=== PATIENT | female | born 1995 | race Caucasian/White ===

== ENCOUNTER 2018-12-24 13:51 | Emergency (ER) | payer OTHER ==
[~2018-12-24] VITALS: Ht 177.8 cm; Wt 89.9 kg
--- OUTSIDE RECORDS SUMMARY | 2018-12-24 13:53 | XMS REPORT ---
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 Allergies, Adverse Reactions, Alerts Allergy Name Allergy Type Status Severity Reaction(s) Onset Date Inactive Date Treating Clinician Comments levofloxacin DA Active SV 2018-10-20 00:00:00 STARTS WITH A "CEF" ANTIBIOTIC FOR UTI DA Active U 2018-08-10 00:00:00 Medications This patient has no known medications. Results Test Description Test Time Test Comments Text Results Atomic Results Result Comments COMPREHENSIVE METABOLIC PANEL 2018-10-20 10:58:00 SODIUM (test code=NA) 137 mEq/L 135-145 POTASSIUM (test code=K) 3.8 mEq/L 3.5-5.0 CHLORIDE (test code=CL) 106 mEq/L 100-115 CARBON DIOXIDE (test code=CO2) 23 mEq/L 22-31 ANION GAP (test code=GAP) 11.70 10-20 GLUCOSE (test code=GLU) 98 mg/dL 65-110 BLOOD UREA NITROGEN (test code=BUN) 9 mg/dL 7-18 GLOMERULAR FILTRATION RATE (test code=GFR) 194 ml/min >60 CREATININE (test code=CREAT) 0.4 mg/dL 0.5-1.0 TOTAL PROTEIN (test code=PROT) 6.2 gm/dL 6.3-8.2 ALBUMIN (test code=ALB) 2.4 gm/dL 3.4-4.8 CALCIUM (test code=CA) 7.6 mg/dL 8.4-10.2 BILIRUBIN TOTAL (test code=BILT) 0.2 mg/dL 0.2-1.0 SGOT/AST (test code=AST) 10 units/L 15-37 SGPT/ALT (test code=ALT) 13 units/L 12-78 ALKALINE PHOSPHATASE TOTAL (test code=ALKP) 99 units/L 46-116 [id number] 10:58:00* Test Item Value Reference Range Comments LIPASE (test code=LIP) 97 units/L 73-393 CBC W/AUTO [id number] 10:23:00* Test Item Value Reference Range Comments WHITE BLOOD CELL (test code=WBC) 13.3 K/mm3 6.6-12.1 RED BLOOD CELL (test code=RBC) 3.61 M/mm3 3.45-5.01 HEMOGLOBIN (test code=HGB) 10.3 g/dL 10.7-13.9 HEMATOCRIT (test code=HCT) 31.7 % 32.1-42.1 MEAN CELL VOLUME (test code=MCV) 88 fL 84.1-94.8 MEAN CELL HGB (test code=MCH) 28.5 pg 27-35 MEAN CELL HGB CONCETRATION (test code=MCHC) 32.5 gm/dL 32.2-34.1 RED CELL DISTRIBUTION WIDTH (test code=RDW) 12.5 % 12.4-16.5 PLATELET COUNT (test code=PLT) 174 K/mm3 133-385 IMMATURE PLATELET FRACTION (test code=IPF) 0.0 % 0.0-10.8 MEAN PLATELET VOLUME (test code=MPV) 10.8 fl 9.1-12.7 NEUTROPHIL % (test code=NT%) 78.2 % 56.5-79.4 LYMPHOCYTE % (test code=LY%) 16.1 % 14.3-34.3 MONOCYTE % (test code=MO%) 4.3 % 5.1-10.4 EOSINOPHIL % (test code=EO%) 0.7 % 0.1-3.0 BASOPHIL % (test code=BA%) 0.2 % 0.1-1.0 NEUTROPHIL # (test code=NT#) 10.4 K/mm3 LYMPHOCYTE # (test code=LY#) 2.1 K/mm3 MONOCYTE # (test code=MO#) 0.6 K/mm3 EOSINOPHIL # (test code=EO#) 0.09 K/mm3 BASOPHIL # (test code=BA#) 0.0 K/mm3 RBC MORPHOLOGY REQUIRED (test code=RBCM) NORMAL NORMAL PLATELET MORPHOLOGY REQUIRED (test code=PLTMR) NORMAL NORMAL UA RFLX MICR CULT IF [id number] 10:10:00* Test Item Value Reference Range Comments UA COLOR (test code=COLU) CHELO YELLOW UA APPEARANCE (test code=APPU) CLOUDY CLEAR UA GLUCOSE DIPSTICK (test code=DGLUU) NEGATIVE NEG UA BILIRUBIN DIPSTICK (test code=BILU) NEGATIVE NEG UA KETONE DIPSTICK (test code=KETU) NEGATIVE NEG UA SPECIFIC GRAVITY (test code=SGU) 1.023 1.001-1.035 UA BLOOD DIPSTICK (test code=MADISON) NEG NEG UA PH DIPSTICK (test code=MARGE) 5.0 5-9 UA PROTEIN DIPSTICK (test code=PROU) 1+ NEG UA UROBILINIOGEN DIPSTICK (test code=URO) NEGATIVE mg/dL NEG UA NITRITE DIPSTICK (test code=SKYLAR) NEG NEG UA LEUKOCYTE ESTERASE DIPSTICK (test code=LEUU) TRACE NEG UA WBC (test code=WBCU) 11-15 #/hpf NONE SEEN UA RBC (test code=RBCU) 3-5 #/hpf NONE SEEN UA EPITHELIAL CELLS (test code=EPIU) FEW #/HPF RARE-FEW UA BACTERIA (test code=BACU) RARE /HPF RARE-FEW UA MUCUS (test code=MUCU) 4+ NONE SEEN CBC W/AUTO [id number] 10:31:00* Test Item Value Reference Range Comments WHITE BLOOD CELL (test code=WBC) 10.3 K/mm3 6.6-12.1 RED BLOOD CELL (test code=RBC) 4.08 M/mm3 3.45-5.01 HEMOGLOBIN (test code=HGB) 12.0 g/dL 10.7-13.9 HEMATOCRIT (test code=HCT) 36.4 % 32.1-42.1 MEAN CELL VOLUME (test code=MCV) 89 fL 84.1-94.8 MEAN CELL HGB (test code=MCH) 29.4 pg 27-35 MEAN CELL HGB CONCETRATION (test code=MCHC) 33.0 gm/dL 32.2-34.1 RED CELL DISTRIBUTION WIDTH (test code=RDW) 14.1 % 12.4-16.5 PLATELET COUNT (test code=PLT) 191 K/mm3 133-385 IMMATURE PLATELET FRACTION (test code=IPF) 3.8 % 0.0-10.8 MEAN PLATELET VOLUME (test code=MPV) 10.8 fl 9.1-12.7 NEUTROPHIL % (test code=NT%) 78.4 % 56.5-79.4 LYMPHOCYTE % (test code=LY%) 14.2 % 14.3-34.3 MONOCYTE % (test code=MO%) 6.0 % 5.1-10.4 EOSINOPHIL % (test code=EO%) 0.7 % 0.1-3.0 BASOPHIL % (test code=BA%) 0.2 % 0.1-1.0 NEUTROPHIL # (test code=NT#) 8.0 K/mm3 LYMPHOCYTE # (test code=LY#) 1.5 K/mm3 MONOCYTE # (test code=MO#) 0.6 K/mm3 EOSINOPHIL # (test code=EO#) 0.07 K/mm3 BASOPHIL # (test code=BA#) 0.0 K/mm3 RBC MORPHOLOGY REQUIRED (test code=RBCM) NORMAL NORMAL PLATELET MORPHOLOGY REQUIRED (test code=PLTMR) NORMAL NORMAL UA RFLX MICR CULT IF [id number] 10:19:00* Test Item Value Reference Range Comments UA COLOR (test code=COLU) YELLOW YELLOW UA APPEARANCE (test code=APPU) CLEAR CLEAR UA GLUCOSE DIPSTICK (test code=DGLUU) NEGATIVE NEGATIVE UA BILIRUBIN DIPSTICK (test code=BILU) NEGATIVE NEGATIVE UA KETONE DIPSTICK (test code=KETU) NEGATIVE NEGATIVE UA SPECIFIC GRAVITY (test code=SGU) 1.020 1.001-1.035 UA BLOOD DIPSTICK (test code=MADISON) NEG NEGATIVE UA PH DIPSTICK (test code=MARGE) 6.0 5-9 UA PROTEIN DIPSTICK (test code=PROU) NEGATIVE NEGATIVE UA UROBILINIOGEN DIPSTICK (test code=URO) 0.2 EU/dL <=1.0 UA NITRITE DIPSTICK (test code=SKYLAR) NEGATIVE NEGATIVE UA LEUKOCYTE ESTERASE DIPSTICK (test code=LEUU) NEG NEGATIVE UA WBC (test code=WBCU) 3-5 #/hpf NONE SEEN UA RBC (test code=RBCU) 0-2 #/hpf NONE SEEN UA EPITHELIAL CELLS (test code=EPIU) FEW #/HPF RARE-FEW UA BACTERIA (test code=BACU) RARE /HPF RARE-FEW UA MUCUS (test code=MUCU) 3+ NONE SEEN UA RFLX MICR CULT IF [id number] 10:18:00* Test Item Value Reference Range Comments UA COLOR (test code=COLU) YELLOW UA APPEARANCE (test code=APPU) CLEAR UA GLUCOSE DIPSTICK (test code=DGLUU) NEGATIVE UA BILIRUBIN DIPSTICK (test code=BILU) NEGATIVE UA KETONE DIPSTICK (test code=KETU) NEGATIVE UA SPECIFIC GRAVITY (test code=SGU) 1.001-1.035 UA BLOOD DIPSTICK (test code=MADISON) NEGATIVE UA PH DIPSTICK (test code=MARGE) 5-9 UA PROTEIN DIPSTICK (test code=PROU) NEGATIVE UA UROBILINIOGEN DIPSTICK (test code=URO) EU/dL <=1.0 UA NITRITE DIPSTICK (test code=SKYLAR) NEGATIVE UA LEUKOCYTE ESTERASE DIPSTICK (test code=LEUU) NEG UA WBC (test code=WBCU) 3-5 #/hpf NONE SEEN UA RBC (test code=RBCU) 0-2 #/hpf NONE SEEN UA EPITHELIAL CELLS (test code=EPIU) FEW #/HPF RARE-FEW UA BACTERIA (test code=BACU) RARE /HPF RARE-FEW UA MUCUS (test code=MUCU) 3+ NONE SEEN COMPREHENSIVE METABOLIC [id number] 10:00:00* Test Item Value Reference Range Comments SODIUM (test code=NA) 136 mEq/L 135-145 POTASSIUM (test code=K) 3.6 mEq/L 3.5-5.0 CHLORIDE (test code=CL) 103 mEq/L 100-115 CARBON DIOXIDE (test code=CO2) 24 mEq/L 22-31 ANION GAP (test code=GAP) 12.40 10-20 GLUCOSE (test code=GLU) 95 mg/dL 65-110 BLOOD UREA NITROGEN (test code=BUN) 9 mg/dL 7-18 GLOMERULAR FILTRATION RATE (test code=GFR) 150 ml/min >60 CREATININE (test code=CREAT) 0.5 mg/dL 0.5-1.0 TOTAL PROTEIN (test code=PROT) 6.7 gm/dL 6.3-8.2 ALBUMIN (test code=ALB) 2.6 gm/dL 3.4-4.8 CALCIUM (test code=CA) 8.0 mg/dL 8.4-10.2 BILIRUBIN TOTAL (test code=BILT) 0.2 mg/dL 0.2-1.0 SGOT/AST (test code=AST) 18 units/L 15-37 SGPT/ALT (test code=ALT) 27 units/L 12-78 ALKALINE PHOSPHATASE TOTAL (test code=ALKP) 72 units/L 46-116
--- OUTSIDE RECORDS SUMMARY | 2018-12-24 13:53 | XMS REPORT | Clinical Summary ---
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 Active dextroamphetamine-ampheta Take 7 mg by 0 mine 15 mg tablet mouth once a week. Active albuterol (PROAIR Inhale 2 0 HFA,PROVENTIL puffs as HFA,VENTOLIN HFA) 90 needed for mcg/actuation inhaler wheezing (Once a month). Active Take 1 tablet 0 vit,[id number] 29 by mouth mg iron- 1 mg tablet per daily. tablet 01/14/2019 Active ibuprofen (ADVIL,MOTRIN) Take 1 tablet 30 tablet 0 600 MG tablet (600 mg 9 total) by mouth every 6 (six) hours as needed (Cramping, Laceration or Incision Pain) for up to 30 days. Active Problems Not on file Resolved Problems Problem Noted Date Resolved Date Anemia, unspecified 12/12/2018 12/15/2018 12/12/2018 12/15/2018 Encounters Care Team Description Date Type Specialty Subha Clarke MD 12/13/2018 Anesthesia Obstetrics and Gynecology Event Shahida Turcios MD 12/12/2018 Hospital Obstetrics and Gynecology - Encounter 12/15/2018 after 12/23/2017 Family History Medical History Relation Name Comments Colon cancer Father Diabetes Maternal Grandfather Lung cancer Maternal Grandfather Eclampsia Maternal Grandmother Hypotension Maternal Grandmother Miscarriages / Mother Stillbirths Colon cancer Paternal Grandmother Relation Name Status Comments Father Maternal Grandfather Maternal Grandmother Mother Paternal Grandmother Social History Date Tobacco Use Types Packs/Day Years Used Never Smoker Smokeless Tobacco: Never Used Drinks/Week oz/Week Comments Alcohol Use Prior to - social Not Currently Sex Assigned at Date Recorded Not on file Industry Job Start Date Occupation Not on file Not on file Not on file Travel End Travel History Travel Start No recent travel history available. Last Filed Vital Signs Reading Time Taken Comments Vital Sign 106/56 12/15/2018 7:51 AM CDT Blood Pressure 64 12/15/2018 7:51 AM CDT Pulse 36.7 C (98 F) 12/15/2018 7:51 AM CDT Temperature 18 12/15/2018 7:51 AM CDT Respiratory Rate 93% 12/13/2018 10:28 AM CDT Oxygen Saturation - - Inhaled Oxygen Concentration 101 kg (223 lb) 12/12/2018 8:37 PM CDT Weight 177.8 cm (5' 10") 12/12/2018 8:37 PM CDT Height 32 12/12/2018 8:37 PM CDT Body Mass Index Plan of Treatment Not on file Procedures Comments Procedure Name Priority Date/Time Associated Diagnosis HC COMPLETE BLD COUNT Routine 12/14/2018 W/AUTO DIFF 7:30 AM CDT ANESTHESIA EPIDURAL BLOCK Routine 12/13/2018 10:10 AM CDT Procedure Note - Subha Clarke MD - 12/13/2018 10:10 AM CDT Epidural Block Date/Time: 12/13/2018 9:36 AM Performed by: Subha Clarke MD Authorized by: Subha Clarke MD Patient Location: OB Start Time: 12/13/2018 9:20 AM End Time: 12/13/2018 9:40 AM Reason for Block: labor epidural Anesthesio logist: Subha Clarke MD Performed by: Anesthesio [email or web address] Preprocedu re: patient identified , IV checked, site and side verified, risks and benefits discussed, procedure verified, surgical consent completed, patient position confirmed, monitors and equipment checked and pre-op evaluation completed Time Out Performed: 12/13/2018 9:11 AM Patient Position: Sitting Prep: Betadine Monitoring : Blood pressure monitoring , continuous pulse oximetry, heart rate and CO2 Approach: Midline Interspace : L3-4 Injection Technique: MILAD air Needle Type: Tuohy Needle Gauge: 17 Loss of resistance : 8.5 cm Catheter at Skin Depth: 13 cm Test Dose: Negative and lidocaine 1.5% with epinephrin e 1-to-200,0 00 Number of Attempts: 1 Pump program started: pain pump Block Outcome: Patient comfortabl e and no apparent complicati ons Post-proce dure: Patient returned to supine position and sterile dressing applied Time: 12/13/2018 9:20 AM Pump program changed: pain pump Medicatio ns Administer ed Lidocaine 1.5% w/epINEPHr ine PF (mg), 5 mL ESTIMATED GFR STAT 12/12/2018 8:24 PM CDT TYPE AND SCREEN, STAT 12/12/2018 OBSTETRICAL PATIENT 8:24 PM CDT SYPHILIS TOTAL ANTIBODY STAT 12/12/2018 8:24 PM CDT HIV 1, 2 ANTIBODY STAT 12/12/2018 8:24 PM CDT HEPATITIS B SURFACE STAT 12/12/2018 ANTIGEN 8:24 PM CDT BASIC METABOLIC PANEL STAT 12/12/2018 8:24 PM CDT HC COMPLETE BLD COUNT STAT 12/12/2018 W/AUTO DIFF 8:24 PM CDT URINALYSIS SCREEN AND STAT 12/12/2018 MICROSCOPY, WITH REFLEX 8:20 PM CDT TO CULTURE URINE DRUGS OF ABUSE STAT 12/12/2018 SCREEN 8:20 PM CDT BETA STREP SCREEN CULTURE Routine 11/14/2018 WITH PRINCE BROTH CHLAMYDIA CULTURE Routine 11/14/2018 GONORRHOEAE CULTURE Routine 11/14/2018 RUBELLA AB IGG Routine 10/31/2018 after 12/23/2017 Results * CBC with platelet and differential (12/14/2018 7:30 AM CDT) Only the most recent of 2 results within the time period is included. WBC 14.1 (H) 4.2 - 11.0 k/uL [facility] RBC 3.60 (L) 4.04 - 5.86 m/uL [facility] HGB 9.5 (L)Comment: REPEAT HGB=9.5 11.5 - 15.3 g/dL [facility] HCT 29.9 (L) 34.0 - 45.0 % [facility] MCV 83.1 80.0 - 98.0 fL [facility] MCH 26.4 (L) 27.0 - 34.0 pg [facility] MCHC 31.8 31.5 - 36.5 g/dL [facility] RDW - SD 41.9 37.0 - 51.0 fL [facility] MPV 11.5 (H) 7.4 - 10.4 fL [facility] Platelet count 154 150 - 400 k/uL [facility] Nucleated RBC 0.00 /100 WBC [facility] Neutrophils 68.2 (H) 36.0 - 66.0 % [facility] Lymphocytes 22.9 (L) 24.0 - 44.0 % [facility] Monocytes 6.8 (H) 0.0 - 6.0 % [facility] Eosinophils 1.1 0.0 - 6.0 % [facility] Basophils 0.1 0.0 - 1.2 % [facility] Immature 0.9 0.0 - 1.0 % [place] granulocytes [facility] Specimen Blood Performing Organization Address City/State/Zipcode Phone Number [facility] DEPARTMENT OF [address] [facility] [place] [address] PATHOLOGY AND GENOMIC MEDIC[facility] [address] [facility] [address] * Estimated GFR (12/12/2018 8:24 PM CDT) Estimated GFR >=90 mL/min/1.73 m2 [place] Comment: [facility] G1 >=90 Normal or high G2 60-89Mildly decreased [id number] Mildly to moderately decreased [id number] Moderately to severely decreased G4 15-29Severely decreased G5 <15Kidney failure The eGFR was calculated using the Chronic Kidney Disease Epidemiology Collaboration (CKD-EPI) equation. Interpretation is based on recommendations of the National Kidney Foundation-Kidney Disease Outcomes Quality Initiative (NKF-KDOQI) published in 2014. Specimen Plasma specimen Performing Organization Address City/[facility]/Zipcode Phone Number [facility] DEPARTMENT OF [address] [place] [phone] PATHOLOGY AND GENOMIC MED[facility] [address] [place] [address] HOSPITAL * Type and screen, obstetrical patient (12/12/2018 8:24 PM CDT) Pathologist [facility] ABO grouping A [facility] Rh type POS [facility] Antibody screen NEG [place] (gel) [facility] Specimen Blood Performing Organization Address City/[facility] Phone Number [facility] DEPARTMENT [address] [place] [phone] PATHOLOGY AND GENOMIC MEDIC[facility] [address] [place] [address] HOSPITAL * Syphilis total antibody (12/12/2018 8:24 PM CDT) [facility] Syphilis total Non-reactiveComment: No Non-reactive [place] antibody serological evidence of [facility] syphilis infection. HOSPITAL Specimen Blood Performing Organization Address [facility]/Zipcode Phone Number [facility] DEPARTMENT OF [address] [place] [address] PATHOLOGY AND [facility] MEDICINE [address] * HIV 1, 2 antibody (12/12/2018 8:24 PM CDT) [facility] HIV 1, 2 Non-Reactive Non-reactive [place] antibody Comment: [facility] Starting from August 03 2015, [facility] 4th generation HIV screening HOSPITAL and confirmation assays are in use at [facility], consistent with the CDC-recommended algorithm. The screening test detects antibodies to HIV-1, HIV-2 and the p24 antigen. Positive screening results will be automatically reflexed to a HIV-1/HIV-2 differentiation assay. Indeterminant HIV-1 results will be further automatically reflexed to a nucleic acid test for detection of acute infection. Western blot will no longer be performed as a confirmation test. For a quick reference guide on the testing algorithm, please refer to: http://stacks.cdc.gov/view/cdc /25197. Specimen Blood Performing Organization Address City/State/Zipcode Phone Number [facility] DEPARTMENT OF [address] [place] [address] PATHOLOGY AND GENOMIC MEDICINE [address] * Hepatitis B surface antigen (12/12/2018 8:24 PM CDT) [facility] Hepatitis B Non-reactive Non-reactive [place] surface Ag [facility] Specimen Blood Performing Organization Address [facility] Phone Number [facility] DEPARTMENT [address] [place] [address] PATHOLOGY AND [facility] MEDICINE [address] * Basic metabolic panel (12/12/2018 8:24 PM CDT) [facility] Sodium 139 135 - 150 mEq/L [facility] Potassium 3.7 3.5 - 5.0 mEq/L [facility] Chloride 106 98 - 112 mEq/L [facility] CO2 17 (L) 24 - 31 mmol/L [facility] Anion gap 16@ANIO (H) 7 - 15 mEq/L [facility] BUN 13 7 - 18 mg/dL [facility] Creatinine 0.60 0.50 - 0.90 mg/dL [facility] Glucose 152 (H) 65 - 100 mg/dL [facility] Calcium 9.3 8.3 - 10.2 mg/dL [facility] Specimen Plasma specimen Performing Organization Address City/[facility]/Zipcode Phone Number [facility] DEPARTMENT OF [address] [place] [address] PATHOLOGY AND GENOMIC MEDICINE [place] [phone] [address] * Urinalysis screen and microscopy, with reflex to culture (12/12/2018 8:20 PM CDT) Specimen site Clean catch [facility] Color, UA Yellow [facility] Appearance, UA Clear [facility] Specific 1.026 1.001 - 1.035 [place] gravity, UA [facility] pH, UA 5.0 5.0 - 8.5 [facility] Protein, UA Negative Negative [facility] Glucose, UA Negative Negative [facility] Ketones, UA Negative Negative [facility] Bilirubin, UA Negative Negative [facility] Blood, UA Small (A) Negative [facility] Nitrite, UA Negative Negative [facility] Urobilinogen, Negative <2.0 [facility] Leukocyte Negative Negative [place] esterase, UA [facility] Epithelial Many /HPF [place] cells, [facility] WBC, UA 3 0 - 5 /HPF [facility] RBC, UA 3 0 - 5 /HPF [facility] Bacteria, UA Trace None seen [facility] Yeast, UA None seen [facility] Yeast with None seen [facility] [facility] Specimen Urine Performing Organization Address [facility] Hospitalcome Phone Number [facility] DEPARTMENT OF [address] [place] [phone] PATHOLOGY AND GENOMIC MED[facility] [address] [place] [address] HOSPITAL * Urine drugs of abuse screen (12/12/2018 8:20 PM CDT) Amphetamine Negative [place] screen, urine [facility] Barbiturate Negative [place] screen, urine [facility] Benzodiazepine Negative [place] screen, urine [facility] Cocaine screen, Negative [place] urine [facility] Methadone Negative [place] metabolite [facility] (EDDP), urine [facility] Opiates screen, Negative [place] urine [facility] Phencyclidine Negative [place] screen, urine [facility] Cannabinoid Negative [place] screen, urine Comment: [facility] Drug screen minimum [facility] Amphet[facility] 1000 ng/mL Barbiturates 200 ng/mL Benzodiazepines 300 ng/mL Cocaine 300 ng/mL Methadone 300 ng/mL Opiates 300 ng/mL Oxycodone 300 ng/mL Phencyclidine 25 ng/mL Cannabinoids 50 ng/mL Tricyclics 1000 ng/mL Results are from screening tests and should only be used for medical evaluation. Drug testing for legal purposes requires definitive (or confirmatory) testing methods, which are available upon request. Contact the laboratory if definitive testing is required. Specimen Urine Performing Organization Address [facility] Phone Number [facility] DEPARTMENT OF [address] [place] [address] PATHOLOGY AND [facility]OMIC [facility] [address] * Beta strep screen culture with prince broth (11/14/2018) Strep gp B Positive EXTERNAL LAB culture NON-INTERFACED Specimen Vaginal Performing Organization Address [facility] Phone Number EXTERNAL LAB NON-INTERFACED * Chlamydia culture (11/14/2018) Chlamydia Negative EXTERNAL LAB culture isolate NON-INTERFACED Specimen Swab Performing Organization Address [facility] Phone Number EXTERNAL LAB NON-INTERFACED * Gonorrhoeae culture (11/14/2018) Gonorrhoeae Negative EXTERNAL LAB culture isolate NON-INTERFACED Performing Organization Address [facility] Phone Number EXTERNAL LAB NON-INTERFACED * Rubella Ab IgG (10/31/2018) [facility] IgG Immune EXTERNAL LAB antibody NON-INTERFACED Specimen Blood Performing Organization Address [facility] Phone Number EXTERNAL LAB NON-INTERFACED after 12/23/2017 Insurance Type Payer Benefit Subscriber ID Effective Phone Address Plan / Dates Group HMO AETNA AETNA xxxxxxxxxx 2018 HMO,POS,EP -Present O, MC/EC Advance Directives For more information, please contact: [phone] Patient Bakery Worker Explanation Type Date Recorded Advance Directives, Living Will and Medical Power of Customer Sales Distributor Date Inactivated Comments Code Status Date Activated 12/14/2018 7:38 AM Full Code 12/12/2018 8:17 PM Code Status decision reached by: Patient
[2018-12-24] MEDS ORDERED: NP THYROID60 MG (14:05)
[2018-12-24] MEDS ORDERED: SODIUM CHLORIDE 0.9% 1000ML 1,000 ML IV SCH (14:30)
[2018-12-24] MEDS ORDERED: SODIUM CHLORIDE 0.9% 1000ML 1,000 ML ONE (14:31)
--- NOTE | 2018-12-24 14:57 | Diagnostic Imaging Report ---
Chest, 1 view, 12/24/2018. History: Dizziness. Comparison: None available. Findings: The cardiomediastinal silhouette and pulmonary vasculature are within normal limits for a portable exam. There is no focal consolidation or pleural effusion. There are no acute osseous or soft tissue abnormalities. Impression: No acute cardiopulmonary abnormality. Signed by: Lane Medina on 12/24/2018 2:54 PM
[2018-12-24 15:20] VITALS: BP 108/70
== END 2018-12-24 15:35 | disposition home or self-care (01) ==
LOC: FSED 13:51
DX: O90.89 Other complications of the puerperium, not elsewhere classified (principal); R00.2 Palpitations
CPT/HCPCS: 71045; 80053; 81003; 82553; 84484; 85025; 85379; 85610; 93005; 99283; J7030

== ENCOUNTER 2021-05-12 14:51 | Emergency (ER) | payer BC ==
[~2021-05-12] VITALS: Ht 177.8 cm; Wt 75.1 kg
[~2021-05-12 14:51] MED LIST: NP THYROID60 MG
[2021-05-12] MEDS ORDERED: VYVANSE40 MG (15:37)
[2021-05-12] MEDS ORDERED: ADDERALL 15 MG15 MG (15:37)
[2021-05-12] MEDS ORDERED: CLEOCIN HCL300 MG PO (15:37)
[2021-05-12] MEDS ORDERED: CLINDAMYCIN PHOS 900MG/ 50ML 50 ML IV ONE (15:45)
[2021-05-12] MEDS ORDERED: PROBIOTIC & AC1 EACH PO (15:50)
[2021-05-12] MEDS ORDERED: DOXYCYCLINE MO100 M1 PO (15:50)
[2021-05-12] MEDS ORDERED: Clindamycin INJ 150 MG/ML 600 MG Vial ONE (16:03)
[2021-05-12] MEDS ORDERED: SODIUM CHLORIDE 0.9% 100 ML ONE ×2 (16:03→16:08)
[2021-05-12] MEDS ORDERED: CLINDAMYCIN PHOS 300MG/2ML VIAL ONE (16:03)
[2021-05-12] MEDS ORDERED: IOPAMIDOL 370 MG/ML 200 ML INFUS..BTL INJ ONE (16:08)
== END 2021-05-12 17:07 | disposition home or self-care (01) ==
LOC: FSED 15:03
DX: T81.49XA Infection following a procedure, other surgical site, initial encounter (principal); T81.31XA Disruption of external operation (surgical) wound, not elsewhere classified, initial encounter; J45.909 Unspecified asthma, uncomplicated; E03.9 Hypothyroidism, unspecified; F98.8 Other specified behavioral and emotional disorders with onset usually occurring in childhood and adolescence
CPT/HCPCS: 74177; 80053; 85025; 99284; J7050; Q9967

== ENCOUNTER → 2021-05-16 | Outpatient (CLI) | payer BC ==
[~2021-05-16] MED LIST changes: +ADDERALL 15 MG15 MG; +CLEOCIN HCL300 MG PO; +DOXYCYCLINE MO100 M1 PO; +PROBIOTIC & AC1 EACH PO; +VYVANSE40 MG
== END ==
LOC: WCC 10:40
PROVIDERS: ATTEND Internal Medicine Infectious Disease
DX: T81.89XA Other complications of procedures, not elsewhere classified, initial encounter (principal); Y83.8 Other surgical procedures as the cause of abnormal reaction of the patient, or of later complication, without mention of misadventure at the time of the procedure; L76.82 Other postprocedural complications of skin and subcutaneous tissue; E03.8 Other specified hypothyroidism; J45.998 Other asthma
CPT/HCPCS: 87071; 87075; 87205

== ENCOUNTER → 2021-05-23 | Outpatient (CLI) | payer BC | LOC: WCC 10:15 | PROVIDERS: ATTEND Internal Medicine Infectious Disease | DX: T81.89XA Other complications of procedures, not elsewhere classified, initial encounter (principal); Y83.8 Other surgical procedures as the cause of abnormal reaction of the patient, or of later complication, without mention of misadventure at the time of the procedure; J45.998 Other asthma; E03.8 Other specified hypothyroidism; L76.82 Other postprocedural complications of skin and subcutaneous tissue ==

== ENCOUNTER → 2021-05-30 | Outpatient (CLI) | payer BC | LOC: WCC 14:54 | PROVIDERS: ATTEND Internal Medicine Infectious Disease | DX: T81.89XA Other complications of procedures, not elsewhere classified, initial encounter (principal); Y83.8 Other surgical procedures as the cause of abnormal reaction of the patient, or of later complication, without mention of misadventure at the time of the procedure; L76.82 Other postprocedural complications of skin and subcutaneous tissue; E03.8 Other specified hypothyroidism; J45.998 Other asthma ==

== ENCOUNTER → 2021-06-06 | Outpatient (CLI) | payer BC | LOC: WCC 09:42 | PROVIDERS: ATTEND Internal Medicine Infectious Disease | DX: T81.89XA Other complications of procedures, not elsewhere classified, initial encounter (principal); Y83.8 Other surgical procedures as the cause of abnormal reaction of the patient, or of later complication, without mention of misadventure at the time of the procedure; E03.8 Other specified hypothyroidism; J45.998 Other asthma; L76.82 Other postprocedural complications of skin and subcutaneous tissue ==

== ENCOUNTER → 2021-06-13 | Outpatient (CLI) | payer BC | LOC: WCC 10:22 | PROVIDERS: ATTEND Internal Medicine Infectious Disease | DX: T81.89XA Other complications of procedures, not elsewhere classified, initial encounter (principal); Y83.8 Other surgical procedures as the cause of abnormal reaction of the patient, or of later complication, without mention of misadventure at the time of the procedure; E03.8 Other specified hypothyroidism; J45.998 Other asthma; L76.82 Other postprocedural complications of skin and subcutaneous tissue ==

== ENCOUNTER → 2021-06-20 | Outpatient (CLI) | payer BC | LOC: WCC 10:15 | PROVIDERS: ATTEND Internal Medicine Infectious Disease | DX: T81.89XA Other complications of procedures, not elsewhere classified, initial encounter (principal); Y83.8 Other surgical procedures as the cause of abnormal reaction of the patient, or of later complication, without mention of misadventure at the time of the procedure; L76.82 Other postprocedural complications of skin and subcutaneous tissue; E03.8 Other specified hypothyroidism; J45.998 Other asthma ==

== ENCOUNTER → 2021-06-27 | Outpatient (CLI) | payer BC | LOC: WCC 10:15 | PROVIDERS: ATTEND Internal Medicine Infectious Disease | DX: T81.89XA Other complications of procedures, not elsewhere classified, initial encounter (principal); Y83.8 Other surgical procedures as the cause of abnormal reaction of the patient, or of later complication, without mention of misadventure at the time of the procedure; E03.8 Other specified hypothyroidism; J45.998 Other asthma; L76.82 Other postprocedural complications of skin and subcutaneous tissue ==

== ENCOUNTER → 2021-07-08 | Outpatient (CLI) | payer BC ==
[~2021-07-08] MED LIST changes: +LIDOCAINE VISC 2% SOLN 15 ML UDC ONE
== END ==
LOC: WCC 10:02
PROVIDERS: ATTEND Internal Medicine Infectious Disease
DX: T81.89XA Other complications of procedures, not elsewhere classified, initial encounter (principal); Y83.8 Other surgical procedures as the cause of abnormal reaction of the patient, or of later complication, without mention of misadventure at the time of the procedure; E03.8 Other specified hypothyroidism; J45.998 Other asthma; L76.82 Other postprocedural complications of skin and subcutaneous tissue

== ENCOUNTER → 2021-07-15 | Outpatient (CLI) | payer BC ==
[~2021-07-15] MED LIST changes: -LIDOCAINE VISC 2% SOLN 15 ML UDC ONE
== END ==
LOC: WCC 09:51
PROVIDERS: ATTEND Internal Medicine Infectious Disease
DX: T81.89XA Other complications of procedures, not elsewhere classified, initial encounter (principal); Y83.8 Other surgical procedures as the cause of abnormal reaction of the patient, or of later complication, without mention of misadventure at the time of the procedure; E03.8 Other specified hypothyroidism; J45.998 Other asthma; L76.82 Other postprocedural complications of skin and subcutaneous tissue

== ENCOUNTER → 2021-07-22 | Outpatient (CLI) | payer BC | LOC: WCC 09:53 | PROVIDERS: ATTEND Internal Medicine Infectious Disease | DX: T81.89XA Other complications of procedures, not elsewhere classified, initial encounter (principal); Y83.8 Other surgical procedures as the cause of abnormal reaction of the patient, or of later complication, without mention of misadventure at the time of the procedure; L76.82 Other postprocedural complications of skin and subcutaneous tissue; E03.8 Other specified hypothyroidism; J45.998 Other asthma ==